=== PATIENT | male | born 1970 | race African-American/Black ===

== ENCOUNTER 2018-01-23 16:57 | Emergency (ER) | payer OTHER, MEDICARE ==
--- NOTE | 2018-01-23 17:23 | ER Document Report ---
HPI - HPI Patient complains to provider of: Swelling to the white part of his eye today Onset: This afternoon Pain Level: 4 Context: 47-year-old noncontact lens wear male felt an irritation to his left eye like an eyelash was hitting his eye and he rubbed his eye to try to get the eyelash out. After that he noticed that there was some jellylike swelling over the white part of his left lateral eye. Associated Symptoms: None Exacerbated by: Denies Relieved by: Denies Similar symptoms previously: No Recently seen / treated by doctor: No - ROS ROS below otherwise negative: Yes Systems Reviewed and Negative: Yes All other systems reviewed and negative Past Medical History - General Information source: Patient - Social History Smoking Status: Never Smoker Frequency of alcohol use: None Drug Abuse: None Lives with: Family Family History: Reviewed & Not Pertinent - Past Medical History Cardiac Medical History: Reports: Hx Hypercholesterolemia Psychiatric Medical History: Reports: Hx Depression Past Surgical History: Reports: Hx Orthopedic Surgery - Immunizations Hx Diphtheria, Pertussis, Tetanus Vaccination: Yes Vertical Provider Document - CONSTITUTIONAL Agree With Documented VS: Yes Exam Limitations: No Limitations - INFECTION CONTROL TRAVEL OUTSIDE OF THE [place] IN LAST 30 DAYS: No - HEENT HEENT: Conjuctival Injection - Minimal lateral left eye, PERRLA Notes: Minor chemosis lateral left eye, no foreign body, no fluorescein uptake. Vision is better in the left eye than it is the right eye. He states that is normal for him - NECK Neck: Supple - RESPIRATORY O2 Sat by Pulse Oximetry: 100 - NEURO Level of Consciousness: Awake, Alert, Appropriate Course - Vital Signs Vital signs: Temp Pulse Resp BP Pulse Ox 98.0 F 66 16 141/89 H 100 01/23/18 17:03 01/23/18 17:03 01/23/18 17:03 01/23/18 17:03 01/23/18 17:03 Discharge - Discharge Clinical Impression: Chemosis of left conjunctiva Condition: Good Disposition: HOME, SELF-CARE Instructions: Antihistamines ([facility]), Chemosis ([facility]) Additional Instructions: oral antihistamines daily do not rub the eye see eye doctor if persists Prescriptions: Loratadine 10 mg PO DAILY #30 capsule Referrals: DESMOND OLSON MD [ACTIVE STAFF] - Follow up as needed
[2018-01-23] MEDS ORDERED: LORATADINE 10 MG TABLET PO ONE (18:28)
[2018-01-23 18:41] VITALS: BP 115/72
== END 2018-01-23 18:58 | disposition home or self-care (01) ==
LOC: ER 16:57
DX: H11.422 Conjunctival edema, left eye (principal); E78.00 Pure hypercholesterolemia, unspecified
CPT/HCPCS: 99283

== ENCOUNTER 2018-10-29 16:05 | Emergency (ER) | payer OTHER, MEDICARE ==
[2018-10-29 16:17] VITALS: BP 119/81
--- NOTE | 2018-10-29 17:05 | RADIOLOGY REPORT (SQ) ---
EXAM DESCRIPTION: ELBOW LEFT OVER 2 VIEWS COMPLETED DATE/TIME: 10/29/2018 4:57 pm REASON FOR STUDY: fall COMPARISON: None. NUMBER OF VIEWS: Four views. TECHNIQUE: AP, lateral, and both oblique radiographic images acquired of the left elbow. LIMITATIONS: None. FINDINGS: MINERALIZATION: Normal. BONES: No acute fracture or dislocation. No worrisome bone lesions. JOINT: No effusion. SOFT TISSUES: No soft tissue swelling. No foreign body. OTHER: No other significant finding. IMPRESSION: NEGATIVE STUDY OF THE LEFT ELBOW. NO RADIOGRAPHIC EVIDENCE OF ACUTE INJURY. TECHNICAL DOCUMENTATION: JOB ID: [id number] [employer]- All Rights Reserved Reading location - IP/workstation name: [email or web address]
--- NOTE | 2018-10-29 17:06 | RADIOLOGY REPORT (SQ) ---
EXAM DESCRIPTION: HAND LEFT 3 VIEWS COMPLETED DATE/TIME: 10/29/2018 4:57 pm REASON FOR STUDY: fall COMPARISON: None. EXAM PARAMETERS: NUMBER OF VIEWS: Three views. TECHNIQUE: AP, lateral and oblique radiographic images acquired of the left hand. LIMITATIONS: None. FINDINGS: MINERALIZATION: Normal. BONES: No acute fracture or dislocation. No worrisome bone lesions. JOINTS: No effusions. SOFT TISSUES: No soft tissue swelling. No foreign body. OTHER: No other significant finding. IMPRESSION: NEGATIVE STUDY OF THE LEFT HAND. NO RADIOGRAPHIC EVIDENCE OF ACUTE INJURY. TECHNICAL DOCUMENTATION: JOB ID: [id number] [employer]- All Rights Reserved Reading location - IP/workstation name: [email or web address]
--- NOTE | 2018-10-29 17:07 | RADIOLOGY REPORT (SQ) ---
EXAM DESCRIPTION: SHOULDER LEFT 2 OR MORE VIEWS COMPLETED DATE/TIME: 10/29/2018 4:57 pm REASON FOR STUDY: fall COMPARISON: None. NUMBER OF VIEWS: Three views. TECHNIQUE: Internal rotation, external rotation, and Y view images acquired of the left shoulder. LIMITATIONS: None. FINDINGS: MINERALIZATION: Normal. BONES: No acute fracture or dislocation. No worrisome bone lesions. JOINTS: No dislocation. VISUALIZED LUNGS AND RIBS: No pneumothorax. No rib fracture. SOFT TISSUES: No radiopaque foreign body. OTHER: No other significant finding. IMPRESSION: NEGATIVE STUDY OF THE LEFT SHOULDER. NO RADIOGRAPHIC EVIDENCE OF ACUTE INJURY. TECHNICAL DOCUMENTATION: JOB ID: [id number] [employer]- All Rights Reserved Reading location - IP/workstation name: [email or web address]
--- NOTE | 2018-10-29 17:17 | ER Document Report ---
ED General - General Chief Complaint: Fall Stated Complaint: SHOULDER/ELBOW PAIN Time Seen by Provider: 10/29/18 16:22 TRAVEL OUTSIDE OF THE [place] IN LAST 30 DAYS: No - HPI Patient complains to provider of: Fall shoulder pain elbow pain Notes: Patient coming in for evaluation of a fall. Patient states he was his left elbow has decreased range of motion of his left arm mostly at the elbow he also complains ofHelping move some objects when he slipped on the wet tile falling backwards hitting shoulder pain wrist and hand pains and swelling. Patient denies any past medical history denies any loss of consciousness patient otherwise has a cane states normally in place with a cane there is no change with ambulation at this time denies any pain in his lower extremities. - Related Data Allergies/Adverse Reactions: caffeine [Caffeine] Allergy (Verified 10/29/18 16:06) Past Medical History - Social History Smoking Status: Never Smoker Chew tobacco use (# tins/day): No Frequency of alcohol use: None Drug Abuse: None Family History: Reviewed & Not Pertinent Patient has suicidal ideation: No Patient has homicidal ideation: No - Past Medical History Cardiac Medical History: Reports: Hx Hypercholesterolemia Renal/ Medical History: Denies: Hx Peritoneal Dialysis Psychiatric Medical History: Reports: Hx Depression Past Surgical History: Reports: Hx Orthopedic Surgery - back x3 - Immunizations Hx Diphtheria, Pertussis, Tetanus Vaccination: Yes Review of Systems - Review of Systems Constitutional: No symptoms reported EENT: No symptoms reported Cardiovascular: No symptoms reported Respiratory: No symptoms reported Gastrointestinal: No symptoms reported Genitourinary: No symptoms reported Male Genitourinary: No symptoms reported Musculoskeletal: Other - Left arm pain Skin: No symptoms reported Hematologic/Lymphatic: No symptoms reported Neurological/Psychological: No symptoms reported -: Yes All other systems reviewed and negative Physical Exam - Vital signs Vitals: Temp Pulse BP Pulse Ox 98.5 F 81 119/81 96 10/29/18 16:14 10/29/18 16:14 10/29/18 16:14 10/29/18 16:14 Interpretation: Normal - General General appearance: Appears well, Alert - HEENT Head: Normocephalic, Atraumatic Eyes: Normal Pupils: PERRL - Respiratory Respiratory status: No respiratory distress Chest status: Nontender Breath sounds: Normal Chest palpation: Normal - Cardiovascular Rhythm: Regular Heart sounds: Normal auscultation Murmur: No - Abdominal Inspection: Normal Distension: No distension Bowel sounds: Normal Tenderness: Nontender Organomegaly: No organomegaly - Back Back: Normal, Nontender - Extremities General upper extremity: Normal inspection, Tender - Tenderness to palpation at the olecranon and of the left wrist, Normal color, Normal temperature. No: Normal ROM - Decreased range of motion of the left arm General lower extremity: Normal inspection, Nontender, Normal color, Normal ROM , Normal temperature, Normal weight bearing. No: Taylor's sign - Neurological Neuro grossly intact: Yes Cognition: Normal Orientation: AAOx4 Jens Coma Scale Eye Opening: Spontaneous [place] Coma Scale Verbal: Oriented [place] Coma Scale Motor: Obeys Commands Jens Coma Scale Total: 15 Speech: Normal Motor strength normal: LUE, RUE, LLE, RLE Sensory: Normal - Psychological Associated symptoms: Normal affect, Normal mood - Skin Skin Temperature: Warm Skin Moisture: Dry Skin Color: Normal Course - Re-evaluation Re-evalutation: 10/29/18 20:59 No fractures are seen explained to the patient at this time we will place him in a sling for comfort and patient was recommended to have x-rays to be performed in 7 days if his pain does not improve. Pain medication was given to the patient. Patient states understanding more likely possibly underlying strain or sprain causing his pain - Vital Signs Vital signs: Temp Pulse Resp BP Pulse Ox 98.5 F 81 119/81 96 10/29/18 16:14 10/29/18 16:14 10/29/18 16:14 10/29/18 16:14 Discharge - Discharge Clinical Impression: Left arm pain Condition: Good Disposition: HOME, SELF-CARE Instructions: Arm Pain, Nonspecific ([facility]), Sprain ([facility]) Additional Instructions: At this time your x-rays do not show any signs of a fracture. Some your pain may be due to deep contusion or straining of muscle or strain of ligaments. I recommend using the arm sling to keep your arm comfortable when out in public however when you are at home he did not need to wear the sling. I recommend Tylenol and Motrin for pain control along with Ultram for severe pain. Follow- up with your primary care physician in 1 week if her symptoms do not improve. He may also use ice packs warm packs to help out with your pain control. Prescriptions: Ibuprofen [Motrin 600 mg Tablet] 600 mg PO Q8HP PRN #21 tablet PRN Reason: Tramadol HCl [Ultram 50 mg Tablet] 50 mg PO ASDIR PRN #14 tablet PRN Reason: Referrals: HUNG ROSE PA [Primary Care Provider] - Follow up as needed
== END 2018-10-29 17:43 | disposition home or self-care (01) ==
LOC: ER 16:05
DX: M25.522 Pain in left elbow (principal); M79.602 Pain in left arm; E78.00 Pure hypercholesterolemia, unspecified
CPT/HCPCS: 99283